=== PATIENT | female | born 1955 | race Hispanic/Latino ===

== ENCOUNTER → 2023-01-22 | Outpatient (CLI) | payer OTHER, MEDICARE | END | disposition home or self-care (01) | LOC: RAH 11:48 | PROVIDERS: ATTEND Internal Medicine | DX: M47.26 Other spondylosis with radiculopathy, lumbar region (principal); M79.18 Myalgia, other site | CPT/HCPCS: 72100 ==

== ENCOUNTER → 2023-04-18 | Outpatient (CLI) | payer OTHER, MEDICARE | END | disposition home or self-care (01) | LOC: RAH 09:15 | PROVIDERS: ATTEND Internal Medicine | DX: Z12.31 Encounter for screening mammogram for malignant neoplasm of breast (principal); R92.323 Mammographic fibroglandular density, bilateral breasts | CPT/HCPCS: 77067 ==

== ENCOUNTER → 2025-01-05 | Outpatient (CLI) | payer OTHER, MEDICAID | END | disposition home or self-care (01) | LOC: RAH 11:28 | PROVIDERS: ATTEND Internal Medicine | DX: Z12.31 Encounter for screening mammogram for malignant neoplasm of breast (principal) | CPT/HCPCS: 77067 ==

== ENCOUNTER → 2025-01-13 | Outpatient (CLI) | payer OTHER, MEDICAID ==
--- NOTE | 2025-01-13 12:21 | HMCIMG ---
CLINICAL INDICATION: Asymptomatic menopausal state COMPARISON: None available TECHNIQUE: Bone densitometry is performed of the lumbar spine and left hip. FINDINGS: Total BMD of lumbar spine is 0.799 g/cm2 with a T-score of -2.3 and Z-score is -0.2. Total BMD of left hip is 0.851 g/cm2 with a T-score of -0.8 and Z-score is -0.5. FRAX SCORE: The 10 year fracture risk for a major osteoporotic fracture and hip fracture not reported due to treated osteoporosis IMPRESSION: 1. Osteopenia of left hip and lumbar spine 2. I would recommend follow-up in 13 months. World Health Organization criteria for BMD interpretation classify patients as Normal (T-score at or above -1.0), Osteopenic (T-score between -1.0 and -2.5), or Osteoporotic (T-score at or below -2.5). FRAX SCORE: A. All treatment decisions require clinical judgment and consideration of individual patient factors, including patient preferences, comorbidities, previous drug use, risk factors not captured in the FRAX model (e.g., frailty, falls, vitamin D deficiency, increased bone turnover, interval significant decline in bone density) and possible gnwlo-uh-rxod-estimation of fracture risk by FRAX. B. In addition, the NOF Guide recommends that FDA-approved medical therapies be considered in postmenopausal women and men age greater than or equal to 50 years with a: i. Hip or vertebral (clinical or morphometric) fracture. ii. T-score of less than or equal to -2.5 at the spine or hip. iii. Ten-year fracture probability by FRAX of greater than or equal to 3% for hip fracture of greater than or equal to 20% for major osteoporotic fracture.
== END | disposition home or self-care (01) ==
LOC: RAH 10:11
PROVIDERS: ATTEND Internal Medicine
DX: M85.89 Other specified disorders of bone density and structure, multiple sites (principal); Z78.0 Asymptomatic menopausal state
CPT/HCPCS: 77080

== ENCOUNTER → 2025-02-03 | Outpatient (CLI) | payer OTHER, MEDICAID ==
--- NOTE | 2025-02-04 07:23 | HMCIMG ---
EXAM: CR Lumbar Spine, 3 views. CLINICAL HISTORY: Lumbar canal stenosis. Radiculopathy. Sciatic pain. COMPARISON: Prior lumbar spine radiograph dated 22 January 2023. FINDINGS: Lumbar alignment is within normal limits. Mild osteopenia. Degenerative reduction in disc space at the L5-S1 level. Degenerative facet arthropathy at L3-L4, L4-L5, and L5-S1 levels, most prominent at the L5-S1 level. Moderate narrowing of the neural foramina. Multilevel degenerative lateral syndesmophyte. Normal vertebral body heights. No acute fracture. Soft tissues are within normal limits. Surgical clip in the right upper quadrant, probably post-cholecystectomy surgical clips. IMPRESSION: No acute bony changes. Mild osteopenia. Moderate degenerative changes in the lumbar spine as described, most prominent at the L5-S1 level. Compared to the prior study, there is an interval worsening of the degenerative changes in the lumbar spine, particularly at the L5-S1 level. /[place]
== END | disposition home or self-care (01) ==
LOC: RAH 11:24
PROVIDERS: ATTEND Internal Medicine
DX: M47.26 Other spondylosis with radiculopathy, lumbar region (principal); M47.817 Spondylosis without myelopathy or radiculopathy, lumbosacral region; M85.88 Other specified disorders of bone density and structure, other site; M48.061 Spinal stenosis, lumbar region without neurogenic claudication
CPT/HCPCS: 72100